=== PATIENT | female | born 1990 | race African-American/Black ===

== ENCOUNTER 2017-06-17 16:41 | Emergency (ER) | payer OTHER ==
[~2017-06-17] VITALS: Ht 162.6 cm; Wt 72.6 kg
[2017-06-17 17:24] LABS: URINE BILIRUBIN NEGATIVE (Negative); URINE BLOOD NEGATIVE (Negative); URINE COLOR YELLOW; URINE GLUCOSE-RANDOM* NEGATIVE (Negative); URINE KETONES TRACE (Negative); URINE NITRITE NEGATIVE (Negative); URINE PROTEIN (DIPSTICK) NEGATIVE (Negative); URINE UROBILINOGEN 0.2 E.U./dl (0.2-1.0)
[2017-06-17 17:40] LABS: ABSOLUTE NEUTROPHILS 6.8 thou/uL (1.4-8.2); BASOPHILS 0.3 % (0.0-2.0); HEMOGLOBIN 14.6 gm/dL (12.0-15.0); LYMPHOCYTES 16.6 % (24.0-44.0); MCH 29.5 pg (26.0-34.0); MONOCYTES 7.5 % (1.0-8.0); PLATELET COUNT 255 thou/uL (150-400); POLYS 74.6 % (36.0-66.0); RBC 4.94 mil/uL (4.20-5.00); RDW 13.8 % (10.5-14.5); WBC 9.2 thou/uL (4.0-11.0)
[2017-06-17 17:45] LABS: MANUAL DIFF NO
[2017-06-17 17:55] LABS: CALCIUM 9.9 mg/dL (8.5-10.1); CREATININE 1.2 mg/dL (0.6-1.0); POTASSIUM 4.3 mmol/L (3.5-5.1)
[2017-06-17 17:59] LABS: ALBUMIN 4.4 g/dL (3.4-5.0); DIRECT BILIRUBIN 0.1 mg/dL (<0.1-0.3); TOTAL BILIRUBIN 0.7 mg/dL (<0.1-1.0); TOTAL PROTEIN 8.2 g/dL (6.4-8.2)
[2017-06-17] MEDS ORDERED: FLAGYL500 MG PO (18:46)
[2017-06-17] MEDS ORDERED: ONDANSETRON HCL4 M2 PO (18:46)
[2017-06-17] MEDS ORDERED: CIPRO500 MG PO (18:46)
[2017-06-17] MEDS ORDERED: NORCO 5-325 TA1 EACH PO (18:46)
[2017-06-17 18:49] VITALS: BP 119/74
== END 2017-06-17 19:02 | disposition home or self-care (01) ==
LOC: ER 16:41
PROVIDERS: Nurse Practitioner; Physician Assistant
DX: K52.9 Noninfective gastroenteritis and colitis, unspecified (principal); F10.99 Alcohol use, unspecified with unspecified alcohol-induced disorder

== ENCOUNTER 2017-08-19 19:16 | Emergency (ER) | payer OTHER ==
[~2017-08-19] VITALS: Ht 162.6 cm; Wt 59.0 kg
[~2017-08-19 19:16] MED LIST: CIPRO500 MG PO; FLAGYL500 MG PO; NORCO 5-325 TA1 EACH PO; ONDANSETRON HCL4 M2 PO
[2017-08-19 19:43] VITALS: BP 143/94
[2017-08-19] MEDS ORDERED: IBUPROFEN 600600 M1 PO (20:07)
[2017-08-19] MEDS ORDERED: KEFLEX500 MG PO (20:07)
== END 2017-08-19 20:24 | disposition home or self-care (01) ==
LOC: ER 19:16
DX: S70.361A Insect bite (nonvenomous), right thigh, initial encounter (principal); L03.115 Cellulitis of right lower limb; F17.210 Nicotine dependence, cigarettes, uncomplicated; F10.99 Alcohol use, unspecified with unspecified alcohol-induced disorder; W57.XXXA Bitten or stung by nonvenomous insect and other nonvenomous arthropods, initial encounter; Y93.89 Activity, other specified; Y92.89 Other specified places as the place of occurrence of the external cause; Y99.8 Other external cause status